=== PATIENT | female | born 1975 | race Caucasian/White ===

== ENCOUNTER 2022-09-07 21:28 | Emergency (ER) | payer BC, OTHER ==
[2022-09-07] MEDS ORDERED: predniSONE 20 MG TAB ONE (21:49)
== END 2022-09-07 22:57 | disposition home or self-care (01) ==
LOC: MADERS 21:28
DX: J45.901 Unspecified asthma with (acute) exacerbation (principal); I10 Essential (primary) hypertension; Z87.891 Personal history of nicotine dependence; Z79.899 Other long term (current) drug therapy
CPT/HCPCS: 99283; J7512; J7611